=== PATIENT | male | born 1975 ===

== ENCOUNTER 2019-05-27 09:45 | Outpatient (CLI) | payer OTHER ==
--- NOTE | 2019-05-27 15:45 | Cat Scan Report ---
CT PARANASAL SINUSES HISTORY: Chronic sinusitis and bleeding; chronic nasal congestion COMPARISON: None. TECHNIQUE: Axial images of the sinuses were obtained. Coronal and sagittal reformats were generated. All CT scans at this location are performed using CT dose reduction for ALARA by means of automated exposure control. CONTRAST: None. FINDINGS: PARANASAL SINUS DEVELOPMENT:Well developed Postsurgical changes: Uncinate processes have been removed bilaterally. Partial ethmoidectomy changes are seen bilaterally. PARANASAL SINUSES AND DRAINAGE PATHWAYS: Maxillary Sinuses and anterior ethmoid air cells: Minimal mucosal thickening is seen in both maxillar y sinuses. Anterior ethmoid air cells are opacified bilaterally. Osteomeatal complex: patent from the surgical changes Posterior ethmoid air cells and sphenoid sinus: Mucosal thickening in the posterior ethmoid air cells ; sphenoid sinuses normal Sphenoethmoid recess: Coastal thickening in the sphenoid ethmoid recesses bilaterally Frontal sinuses:Mucosal thickening in the inferior frontal sinuses bilaterally Frontal recess: Mucosal thickening in the right frontal recess; ethmoidectomy changes near the left frontal recess NASAL CAVITY: Nasal septum: Perpendicular plate of ethmoid and median nasal septum bowing towards the right side po steriorly and towards the left side anteriorly. Very shallow bony spur seen inferiorly projecting to the right side. This is not touching the turbinates. Middle turbinate yris bullosa: Small yris bullosa seen bilaterally Paradoxical middle turbinate rotation: None CLOSE Cribriform plate, lateral lamellae and olfactory recesses are normal. Depth of the cribriform plate i s 6 mm. Lamina papyracea:intact Wendie cells: Not present Uncinate process contacts medial orbital wall: have been removed Onodi cell:Not present Spenoid sinus pnematization: presellar Anterior ethmoid notches:protected SINUS ANATOMICAL VARIANTS: Carotid and optic canals:not dehiscent Sphenoid septum: Towards the midline Visualized mastoid air cells: No significant abnormality. Visualized orbits: No significant abnormality. Additional findings: Inhomogeneous marrow in the clivus Benign dysplasia IMPRESSION: No significant abnormality. Signer Name: Yamil Dunn MD Signed: 05/27/2019 3:40 PM Workstation Name: [id number]
== END 2019-05-27 09:46 | disposition home or self-care (01) ==
LOC: CT 09:45
PROVIDERS: ATTEND Specialist
DX: J32.8 Other chronic sinusitis (principal); R09.81 Nasal congestion; R04.0 Epistaxis; Z98.890 Other specified postprocedural states
CPT/HCPCS: 70486